=== PATIENT | female | born 1950 ===

== ENCOUNTER → 2025-09-04 09:57 | Outpatient (BNVA) | payer MEDICARE, BC, SELFPAY | PROVIDERS: PCP Internal Medicine; Referring Provider Internal Medicine; Visit Provider Internal Medicine Pulmonary Disease | DX: J84.9 Interstitial pulmonary disease, unspecified (principal); J98.4 Other disorders of lung; R06.00 Dyspnea, unspecified; J30.9 Allergic rhinitis, unspecified; Z87.891 Personal history of nicotine dependence | CPT/HCPCS: 36415; 99205 ==

== ENCOUNTER 2025-09-04 17:57 | Outpatient (REF) | payer MEDICARE, BC, SELFPAY ==
[2025-09-04 12:55] LABS: Abs Immature Grans 0.03 10^3/uL (0.0-0.06); HCT 39.6 % (36.0-46.0); HGB 13.7 g/dL (11.2-15.7); Immature Grans % 0.4 %; MCH 31.6 pg (27.0-33.0); MCHC 34.6 % (32.0-36.0); MCV 91 fL (80-95); MPV 9.1 fL (8.0-11.0); Platelet Count 305 10^3/uL (130-400); RBC 4.34 10^6/uL (3.93-5.22); RDW 13.0 % (11.7-14.6); RDW-SD 43.7 fL; WBC 8.35 10^3/uL (4.4-10.8)
[2025-09-04 12:56] LABS: ESR 20 mm/hr (0-30)
[2025-09-04 13:31] LABS: ALT 28 U/L (14-59); AST 21 U/L (15-37); Albumin 3.6 g/dL (3.4-5.0); Alkaline Phosphatase 81 U/L (46-116); Anion Gap 11.4 mmol/L (3-11); BUN 32 mg/dL (7-18); Bilirubin, Total 0.7 mg/dL (0.2-1.0); CO2 25.6 mmol/L (21.0-32.0); Calcium 9.1 mg/dL (8.5-10.1); Chloride 100 mmol/L (98-107); Creatine Kinase 72 U/L (26-192); Estimated GFR 53.06 (mL/min/1.73m2); Glucose 111 mg/dL (74-106); Potassium 5.0 mmol/L (3.5-5.1); Sodium 137 mmol/L (136-145); Total Protein 7.4 g/dL (6.4-8.2)
[2025-09-04 13:35] LABS: C-Reactive Protein < 0.50 mg/dL (<or=0.5)
[2025-09-06 20:13] LABS: JO 1 Ab, IgG <0.2 U; RNP Ab, IgG <0.2 U; SS-A/Ro, IgG <0.2 U; SS-B (La) Ab, IgG <0.2 U; Scl 70 Ab, IgG 0.2 U
== END 2025-09-04 17:58 | disposition home or self-care (01) ==
LOC: LBN 17:57
PROVIDERS: PCP Internal Medicine; Visit Provider Internal Medicine Pulmonary Disease
DX: J84.9 Interstitial pulmonary disease, unspecified (principal); R06.00 Dyspnea, unspecified
CPT/HCPCS: 80053; 82550; 85652; 86200; 86215; 85025; 86038; 86140; 86225; 86235